=== PATIENT | male | born 1970 | race Caucasian/White ===

== ENCOUNTER 2019-05-29 15:46 | Inpatient (IN) | payer OTHER ==
--- NOTE | 2019-05-29 16:24 | RAD ---
Chest one view HISTORY: Chest pain. Hypotension. COMPARISON: 10/01/2006. FINDINGS: Cardiac silhouette is magnified by projection. Pulmonary vasculature upper limits of normal . Mediastinum is midline with postoperative changes. Calcified granulomata are consistent with healed granulomatous disease. No lobar consolidation or evidence of pneumothorax. IMPRESSION: No active cardiopulmonary abnormalities are demonstrated.
[2019-05-29 16:27] LABS: Bacteria/HPF None Seen HPF (None Seen); Squamous Epithelial None Seen HPF (0-3); WBC/HPF 0-3 HPF (0-3)
[2019-05-29 16:28] LABS: #Basophils 0.1 thou/uL (0.0-0.2); #Eosinphils 0.3 thou/uL (0.0-0.7); #Lymphocytes 2.3 thou/uL (1.20-3.40); #Monocytes 1.1 thou/uL (0.11-0.59); #Neutrophils 7.7 thou/uL (1.40-6.50); %Basophils 0.6 % (0.0-1.0); %Eosinophils 2.2 % (0.0-10.0); %Lymphocytes 20.3 % (21.0-51.0); %Monocytes 9.7 % (0.0-10.0); %Neutrophils 67.2 % (42.0-75.0); Hemoglobin 16.3 g/dL (14.0-18.0); Mean Corpuscular HGB CONC 34.7 g/dL (32.0-36.0); Mean Corpuscular Volume 92.1 fL (78.0-98.0); Mean Platelet Volume 6.2 fL (7.4-10.4); Platelet Count 275 thou/uL (130-400); Red Blood Cell (RBC) Count 5.09 mill/uL (4.70-6.10); White Blood Cell (WBC) Count 11.4 thou/uL (4.8-10.8)
[2019-05-29 16:31] LABS: Bilirubin Negative (Negative); Blood, Urine Trace (Negative); Clarity Clear (Clear); Glucose, Urine (Dipstick) Greater than 1000 mg/dL (Negative); Leukocyte Negative Leu/uL (Negative); Nitrite Negative (Negative); Protein, Urine (Dipstick) 10 mg/dL (Neg-Trace); Urobilinogen Normal mg/dL (Less than 2)
[2019-05-29 16:49] LABS: ALT (SGPT) 24 U/L (8-55); AST (SGOT) 16 U/L (5-34); Alkaline Phosphatase 94 U/L (40-150); Anion Gap 14 mmol/L (10-20); BUN (Urea Nitrogen) 15 mg/dL (8.9-20.6); Bilirubin, Total 0.3 mg/dL (0.2-1.2); CK (CPK) 102 U/L (30-200); Calc. Creatinine Clearance 0 mL/min (70-130); Carbon Dioxide 23 mmol/L (22-29); Chloride 102 mmol/L (98-107); Estimated GFR-MDRD Greater than 90; Globulin 2.6 g/dL (2.4-3.5); Glucose 330 mg/dL (70-105); Potassium 4.6 mmol/L (3.5-5.1); Protein, Total 6.6 g/dL (6.0-8.3); Sodium 134 mmol/L (136-145)
[2019-05-29 17:12] LABS: CKMB 1.7 ng/mL (0-6.6)
[2019-05-29] MEDS ORDERED: Morphine 4 MG/ML VIAL ONE (17:13)
[2019-05-29] MEDS ORDERED: Acetaminophen 325 MG TAB PO PRN (19:31)
[2019-05-29] MEDS ORDERED: Ondansetron ODT 4 MG TAB SL PRN (19:31)
[2019-05-29] MEDS ORDERED: Ondansetron PF 4 MG/2 ML Vial IVP PRN (19:31)
[2019-05-29] MEDS ORDERED: Aspirin 325 MG TAB PO SCH (19:45)
[2019-05-29] MEDS ORDERED: Dextrose 50% Abboject 50 ML SYRINGE SLOW IVP PRN (19:59)
[2019-05-29] MEDS ORDERED: HumaLOG 300 UNITS/3 ML VIAL SC PRN ×2 (19:59)
[2019-05-29] MEDS ORDERED: Dextrose 5% in Water 1,000 ML IV PRN (19:59)
[2019-05-29] MEDS: Carvedilol 25 MG TAB PO SCH (21:33)
[2019-05-29] MEDS: Famotidine 20 MG TAB PO SCH (21:34)
[2019-05-29] MEDS: Atorvastatin Calcium 40 MG TAB PO SCH (21:34)
[2019-05-29 23:16] LABS: Troponin I 0.189 ng/mL (< 0.028)
[2019-05-30 01:40] LABS: #Basophils 0.1 thou/uL (0.0-0.2); #Eosinphils 0.3 thou/uL (0.0-0.7); #Neutrophils 6.1 thou/uL (1.40-6.50); %Basophils 0.6 % (0.0-1.0); %Eosinophils 2.7 % (0.0-10.0); %Lymphocytes 28.6 % (21.0-51.0); %Monocytes 9.9 % (0.0-10.0); %Neutrophils 58.2 % (42.0-75.0); Hemoglobin 14.6 g/dL (14.0-18.0); Mean Corpuscular HGB CONC 34.7 g/dL (32.0-36.0); Mean Corpuscular Hemoglobin 32.3 pg (27.0-31.0); Mean Corpuscular Volume 92.9 fL (78.0-98.0); Mean Platelet Volume 5.9 fL (7.4-10.4); Platelet Count 237 thou/uL (130-400); Red Blood Cell (RBC) Count 4.53 mill/uL (4.70-6.10); White Blood Cell (WBC) Count 10.4 thou/uL (4.8-10.8)
[2019-05-30 02:02] LABS: Troponin I 0.243 ng/mL (< 0.028)
[2019-05-30 02:02] LABS: Hemoglobin A1c 8.4 % (4.0-6.0)
[2019-05-30 02:05] LABS: Anion Gap 11 mmol/L (10-20); BUN (Urea Nitrogen) 15 mg/dL (8.9-20.6); Calc. Creatinine Clearance 194 mL/min (70-130); Calcium 8.8 mg/dL (7.8-10.44); Carbon Dioxide 25 mmol/L (22-29); Cardiac Risk 6.5 (Less than 4.5); Chloride 105 mmol/L (98-107); Cholesterol 157 mg/dl (< 200 Desired); Estimated GFR-MDRD Greater than 90; Glucose 273 mg/dL (70-105); HDL Cholesterol 24 mg/dL (>60 Neg Risk); Sodium 137 mmol/L (136-145); Triglycerides 702 mg/dL (Less than 150)
--- NOTE | 2019-05-30 09:45 | PDOC.HOSPP ---
- Subjective Encounter Date: 05/30/19 Encounter Time: 09:15 Subjective: Patient examined, denies new complaints, denied chest pain - Objective Vital Signs & Weight: Vital Signs (12 hours) Temp Pulse Resp BP BP Pulse Ox 05/30/19 07:37 97.7 F 76 20 126/71 93 L 05/30/19 03:52 76 18 110/58 L 93 L 05/29/19 22:30 81 18 130/75 Weight Weight 120.973 kg Result Diagrams: 05/30/19 01:26 05/30/19 01:26 Additional Labs: Accuchecks 05/30/19 05/29/19 05/29/19 05:40 22:55 15:59 POC Glucose 203 H 257 H 302 H ROS - Review of Systems Cardiovascular: reports: chest pain Other: Denies chest pain currently - Medication Medications: Active Medications Generic Name Dose Route Start Last Admin Trade Name Freq PRN Reason Stop Dose Admin Atorvastatin Calcium 40 mg 05/29/19 21:00 05/29/19 21:34 Lipitor PO 40 mg HS CL Administration Carvedilol 12.5 mg 05/29/19 21:00 05/29/19 21:33 Coreg PO 12.5 mg BID CL Administration Famotidine 20 mg 05/29/19 21:00 05/29/19 21:34 Pepcid PO 20 mg BID CL Administration Insulin Human Lispro 0 units 05/29/19 19:59 05/29/19 22:59 Humalog SC 3 unit .BEDTIME SLIDING SC PRN Administration Bedtime Correctional Scale - Exam Eye: PERRL ENT: moist mucosa Neck: supple Heart: RRR Respiratory: CTAB Gastrointestinal: soft, non-tender Extremities: no edema Skin: normal turgor Neurological: CN's grossly intact Musculoskeletal: normal tone Psychiatric: normal affect, A&O x 3 Hosp A/P (1) Chest pain Code(s): R07.9 - CHEST PAIN, UNSPECIFIED Status: Acute (2) Unstable angina Status: Acute (3) CAD (coronary artery disease) Code(s): I25.10 - ATHSCL HEART DISEASE OF [place] CORONARY ARTERY W/O ANG PCTRS Status: Chronic (4) Diabetes mellitus Code(s): E11.9 - TYPE 2 DIABETES MELLITUS WITHOUT COMPLICATIONS Status: Chronic (5) Hypertriglyceridemia Code(s): E78.1 - PURE HYPERGLYCERIDEMIA Status: Acute - Plan Cardiology consult pending Troponins in the indeterminate range Will continue to monitor Recheck labs in AM
[2019-05-30] MEDS: Carvedilol 25 MG TAB PO SCH ×2 (09:51→21:50)
[2019-05-30] MEDS: Lisinopril 20 MG TAB PO SCH (09:51)
[2019-05-30] MEDS: Aspirin 81 mg Enteric Coated Tablet PO SCH (09:51)
[2019-05-30] MEDS: Famotidine 20 MG TAB PO SCH ×2 (09:51→21:50)
--- NOTE | 2019-05-30 10:57 | HP ---
CHIEF COMPLAINT: Chest pain. HISTORY OF PRESENT ILLNESS: The patient is a 48-year-old male with past medical history significant for premature coronary artery disease, requiring three vessel bypass surgery in 2005 at the age of 36, obesity, type 2 diabetes mellitus, hypertension, and tobacco abuse, who presented to the hospital after suffering an episode of chest pain earlier today. 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 He describes it as a pressure and a burning that radiated to the left arm. He stated that it felt very similar to his symptoms prior to his bypass surgery back in 2005. The patient reports the pain as severe, and went to sit back in the truck and turned on the air conditioning. Despite the air conditioning, the patient reported profuse diaphoresis associated with his chest discomfort. He called his family and drove to the nearest place where he could call an ambulance. EMS in [place] did picking tech the patient and bring him to the emergency department for further workup. He was given 325 mg of aspirin in the ambulance. Initial EKG obtained from EMS shows normal sinus rhythm, no dynamic ST or T-wave changes. His EKG on arrival to our facility did show approximately [address] depression in the lateral leads. The patient reported having another episode of chest discomfort in the ER, the patient was given morphine as well as nitroglycerin paste. His repeat EKG at that time showed some deepening of the ST depression. His troponin has been indeterminate. Upon my interview, the patient is chest pain free. Prior cardiac history does include a three vessel CABG at the age of 36. The patient's primary machine operator replanter is Dr. Crews. The patient reports that he did have a stress test in 2016 that he says was normal. He has had no followup since that time. The patient has been a one pack per day smoker, but is currently using Chantix to quit and said that he had his last cigarette several days ago. His serial troponin has been indeterminate thus far. REVIEW OF SYSTEMS: A 12-point review of systems performed and is negative except that stated above. PAST MEDICAL HISTORY: Hypertension, hyperlipidemia, type 2 diabetes mellitus, history of premature coronary artery disease, requiring three vessel CABG in 2005. PAST SURGICAL HISTORY: Three-vessel CABG as above. SOCIAL HISTORY: The patient is and lives just outside of [place]. He has a daughter who is a teenager. The patient has been smoking one pack per day of cigarettes for at least the past 8 years. He did quit briefly after his prior cardiac surgery. He is currently using Chantix and had his last cigarette several days ago. He drinks alcohol socially. No illicit drug use. FAMILY HISTORY: The patient is adopted, but he said that he does have some paperwork and knows that his genetic grandfather did have some coronary artery disease. ALLERGIES: NO KNOWN DRUG ALLERGIES. HOME MEDICATIONS: 1. Aspirin 81 mg daily. 2. Carvedilol 12.5 mg p.o. b.i.d. 3. Lisinopril 20 mg daily. 4. Atorvastatin 40 mg at bedtime. 5. Chantix, unknown dose. 6. Metformin, unknown dose. 7. Ronnie red Chaplin-3 oil, unknown dose. PHYSICAL EXAMINATION: VITAL SIGNS: Blood pressure is 129/64, pulse is 81, O2 saturation is 95% on room air, respirations 18, and temperature 98.5. GENERAL: The patient is a morbidly obese male, resting comfortably in bed in the ER, in no acute distress. HEENT: Head is atraumatic and normocephalic. Mucous membranes are moist. NECK: Trachea is midline. No JVD. CV: S1 and S2. Regular rate and rhythm. No appreciable murmurs, rubs, or gallops. LUNGS: Regular respiratory rate and pattern, overall clear. ABDOMEN: Positive bowel sounds, obese, nontender. EXTREMITIES: No edema. SKIN: Warm and dry. Multiple tattoos. NEUROLOGIC: Cranial nerves 2 through 12 are grossly intact. The patient is nonfocal. LABORATORY DATA: White blood cell count 11.4, hemoglobin 16.3, hematocrit 46.9, platelets 275. Sodium 134, potassium 4.6, chloride 102, anion gap 14, BUN 15, creatinine 0.88, GFR greater than 90, glucose 330. AST 16, ALT 24, alkaline phosphatase 94. Troponin 0.034 and 0.100 respectively. ASSESSMENT: 1. Worrisome angina, with some increasing ST depression in lateral leads on 2nd EKG per my review; indeterminate troponin. 2. History of premature coronary artery disease with three vessel CABG in 2006 at the age of 36. 3. Obesity. 4. History of tobacco abuse, currently in the process of quitting with Chantix. 5. Type 2 diabetes mellitus. 6. Hypertension. 7. Hyperlipidemia. PLAN: Given the patient's worrisome symptoms of angina and EKG findings, we will consult Cardiology for their recommendations. We will need to continue to trend troponins. Continue p.r.n. nitrates. Continue aspirin beta sangita, MIREILLE inhibitor, and statin. I will obtain an A1c in the morning as well as a fasting lipid profile. We will continue sliding scale insulin at this time. N.p.o. after midnight in anticipation of Cardiology consult. Given his EKG findings, symptoms, and known history, I will defer to Cardiology regarding stress test. Further recommendations based on hospital course. Job ID: [id number]
[2019-05-30] MEDS ORDERED: Nitroglycerin 0.4 MG TAB (25 Tab Bottle) SL PRN (17:10)
[2019-05-30] MEDS ORDERED: Morphine 4 MG/ML VIAL ONE (17:12)
[2019-05-30] MEDS: Communication Order-Pharmacy FS SCH (18:03)
[2019-05-30] MEDS: Atorvastatin Calcium 40 MG TAB PO SCH (21:50)
[2019-05-30] MEDS: Enoxaparin Sodium 120 MG/0.8 ML SYRINGE SC SCH (21:51)
[2019-05-30] MEDS: Morphine 4 MG/ML VIAL SLOW IVP PRN (21:54)
--- NOTE | 2019-05-30 23:13 | CON ---
DATE OF CONSULTATION: HISTORY: Dave Hercules is a 48-year-old white male with previous CABG at the age of 36. In 2006, he presented complaining of midsternal discomfort that would occur with and without exertion. He was placed on Protonix and had improvement in his pain for two months, but then this recurred. He also had dyspnea on exertion. Echo at that time revealed ejection fraction of 25% to 30% with apical akinesis. He underwent cardiac catheterization by Dr. Crews and was found to have total occlusion of the proximal LAD. There was 90% first obtuse marginal stenosis and total occlusion in the mid RCA. Ejection fraction was 25% to 30%. He underwent CABG x3 by Dr. Benson with DICKENS to LAD, saphenous vein graft to the first obtuse marginal, and saphenous vein graft to the right acute marginal. Postoperative course was unremarkable and by postoperative day 3, he was ready for discharge. He continues to follow up with Dr. Crews on a fairly routine basis until recently. He was last seen in the office in November 2006. He underwent treadmill testing and exercised for 10 minutes and 0 seconds. Maximum heart rate was 160, and he did not have any chest pain or ST-segment changes and it was felt that this was a normal exercise test. He has not been seen since that time. He states that in general, he has not been having much chest discomfort. Then, yesterday, he was unhitching his trailer and began to have severe substernal chest pressure associated with intense diaphoresis and shortness of breath. No nausea or vomiting. He got into his air-conditioned truck and continued to have profuse diaphoresis and chest pressure. He called 911. Paramedics arrived, gave him sublingual nitroglycerin, which gave him significant relief of his pain. He was brought to the hospital. He had another episode in the emergency room and was given intravenous morphine. Since that time, he has not had any further chest discomfort. Total duration of the episode of chest pain was 2 hours. PAST MEDICAL HISTORY: Hypertension, diabetes, hyperlipidemia with significant elevated triglycerides, obesity, and coronary artery disease. PAST SURGICAL HISTORY: CABG. MEDICATIONS: 1. Aspirin 81 daily. 2. Carvedilol 12.5 b.i.d. 3. Lisinopril 20 daily. 4. Atorvastatin 40 at bedtime. 5. Chantix and metformin, unknown dose daily. 6. MegaRed omega-3. ALLERGIES: NONE. SOCIAL HISTORY: He smokes 1 pack per day, but recently using Chantix, states he quit three weeks ago. He occasionally drinks alcohol. FAMILY HISTORY: The patient is adopted. REVIEW OF SYSTEMS: A 10-point review of systems is otherwise unremarkable. PHYSICAL EXAMINATION: VITAL SIGNS: Blood pressure 134/70 and pulse 82. HEENT: PERRL. NECK: Supple. CHEST: Clear. CARDIAC: S1 and S2 normal without any S3, S4, or murmurs. Carotid upstrokes normal without bruits. ABDOMEN: Normal bowel sounds without tenderness or organomegaly. EXTREMITIES: Revealed no clubbing, cyanosis, or edema. NEUROLOGIC: Grossly intact. SKIN: Warm and dry. LABORATORY DATA: EKG initially revealed slight ST-segment downsloping in V3 through V6. Repeat EKG 2 hours later revealed more significant downsloping ST segments , V3 through V6 consistent with lateral ischemia. CBC is unremarkable. Sodium 137, potassium 4.0, chloride 105, carbon dioxide 25, BUN 15, and creatinine 0.78. Troponin I 0.243. Cholesterol 157, triglycerides 702, HDL 24, LDL could not be determined. IMPRESSION: 1. [id number] myocardial infarction. 2. EKG changes consistent with lateral ischemia. 3. Status post coronary artery bypass grafting x3 in 2005. 4. Ischemic cardiomyopathy with ejection fraction of 25% to 30% prior to bypass surgery. I cannot find an echo in the office or in the hospital that reassessed his left ventricular function since bypass surgery, although I imagine that at the MI that has been done. 5. Hypertension. 6. Diabetes, poorly controlled. 7. Hyperlipidemia, poorly controlled. 8. Smoker until three weeks ago. PLAN: With non-STEMI and EKG changes consistent with lateral ischemia, Mr. Hercules needs to undergo cardiac catheterization. Risks of this were discussed including , myocardial infarction, dye reaction, vascular injury, CVA, transfusion, limb loss, renal loss, etc. Also risk of intervention with PTCA and stent placement were discussed including , myocardial infarction, emergent CABG, restenosis, stent thrombosis, vessel perforation, etc. He understands and agrees to proceed. He has no history of GI bleeding or stroke and does not have any upcoming surgeries and drug-eluting stent will be placed if required. Job ID: [id number] [facility]
[2019-05-31] MEDS: Morphine 2 MG/ML SYRINGE SLOW IVP PRN ×2 (08:09→20:38)
[2019-05-31] MEDS: Carvedilol 25 MG TAB PO SCH ×2 (08:10→20:27)
[2019-05-31] MEDS: Famotidine 20 MG TAB PO SCH ×2 (08:10→20:29)
[2019-05-31] MEDS: Enoxaparin Sodium 120 MG/0.8 ML SYRINGE SC SCH ×2 (08:10→20:29)
[2019-05-31] MEDS: Aspirin 81 mg Enteric Coated Tablet PO SCH (08:10)
[2019-05-31] MEDS: Lisinopril 20 MG TAB PO SCH (08:10)
[2019-05-31 08:38] LABS: #Basophils 0.1 thou/uL (0.0-0.2); #Eosinphils 0.3 thou/uL (0.0-0.7); #Lymphocytes 2.5 thou/uL (1.20-3.40); #Monocytes 1.2 thou/uL (0.11-0.59); #Neutrophils 8.7 thou/uL (1.40-6.50); %Basophils 0.6 % (0.0-1.0); %Eosinophils 2.2 % (0.0-10.0); %Lymphocytes 19.7 % (21.0-51.0); %Monocytes 9.5 % (0.0-10.0); %Neutrophils 68.1 % (42.0-75.0); Mean Corpuscular HGB CONC 34.7 g/dL (32.0-36.0); Mean Corpuscular Hemoglobin 31.9 pg (27.0-31.0); Mean Corpuscular Volume 91.9 fL (78.0-98.0); Mean Platelet Volume 5.9 fL (7.4-10.4); Platelet Count 264 thou/uL (130-400); RBC Distribution Width 12.2 % (11.5-14.5); Red Blood Cell (RBC) Count 5.32 mill/uL (4.70-6.10); White Blood Cell (WBC) Count 12.8 thou/uL (4.8-10.8)
[2019-05-31 08:56] LABS: Anion Gap 17 mmol/L (10-20); BUN (Urea Nitrogen) 11 mg/dL (8.9-20.6); Calc. Creatinine Clearance 199 mL/min (70-130); Carbon Dioxide 20 mmol/L (22-29); Chloride 101 mmol/L (98-107); Estimated GFR-MDRD Greater than 90; Glucose 162 mg/dL (70-105); Potassium 4.1 mmol/L (3.5-5.1); Sodium 134 mmol/L (136-145)
[2019-05-31] MEDS: Communication Order-Pharmacy FS SCH (12:29)
--- NOTE | 2019-05-31 13:05 | PDOC.HOSPP ---
- Subjective Encounter Date: 05/31/19 Encounter Time: 09:00 Subjective: Patient examined, reports intermittent chest pain, but nothing like he had when he first arrived in the ED. Denied new complaints. - Objective Vital Signs & Weight: Vital Signs (12 hours) Temp Pulse Resp BP Pulse Ox 05/31/19 11:38 97.5 F L 84 20 138/81 93 L 05/31/19 07:46 97.4 F L 84 16 134/66 94 L 05/31/19 05:36 97.5 F L 80 16 152/97 H 94 L Weight Weight 120.973 kg I&O: 05/30/19 05/31/19 06/01/19 06:59 06:59 06:59 Intake Total 640 Balance 640 Result Diagrams: 05/31/19 08:28 05/31/19 08:28 Additional Labs: Accuchecks 05/31/19 05/30/19 05/30/19 07:58 20:38 17:02 POC Glucose 147 H 203 H 174 H ROS - Review of Systems Cardiovascular: reports: chest pain - Medication Medications: Active Medications Generic Name Dose Route Start Last Admin Trade Name Freq PRN Reason Stop Dose Admin Aspirin 81 mg 05/30/19 09:00 05/31/19 08:10 Ecotrin PO 81 mg DAILY CL Administration Atorvastatin Calcium 40 mg 05/29/19 21:00 05/30/19 21:50 Lipitor PO 40 mg HS CL Administration Carvedilol 12.5 mg 05/29/19 21:00 05/31/19 08:10 Coreg PO 12.5 mg BID CL Administration Enoxaparin Sodium 120 mg 05/30/19 21:00 05/31/19 08:10 Lovenox SC 05/31/19 21:00 120 mg 0900,2100 CL Administration Famotidine 20 mg 05/29/19 21:00 05/31/19 08:10 Pepcid PO 20 mg BID CL Administration Insulin Human Lispro 0 units 05/29/19 19:59 05/29/19 22:59 Humalog SC 3 unit .BEDTIME SLIDING SC PRN Administration Bedtime Correctional Scale Lisinopril 20 mg 05/30/19 09:00 05/31/19 08:10 Zestril PO 20 mg DAILY CL Administration Miscellaneous Information 0 each 05/30/19 17:00 05/31/19 12:29 Communication Order-Pharmacy FS 05/31/19 23:00 Not Given 1700 CL Morphine Sulfate 2 mg 05/30/19 17:15 05/31/19 08:09 Morphine SLOW IVP 2 mg Q4H PRN Administration Moderate Pain (4-6) Morphine Sulfate 4 mg 05/30/19 17:09 05/30/19 21:54 Morphine SLOW IVP 4 mg Q4H PRN Administration Moderate to Severe Pain (6-10) - Exam Eye: PERRL Neck: supple Heart: RRR Respiratory: CTAB Gastrointestinal: soft, non-tender Extremities: no edema Skin: normal turgor Neurological: CN's grossly intact Musculoskeletal: normal strength Psychiatric: normal affect Hosp A/P (1) Chest pain Code(s): R07.9 - CHEST PAIN, UNSPECIFIED Status: Acute (2) Unstable angina Status: Acute (3) CAD (coronary artery disease) Code(s): I25.10 - ATHSCL HEART DISEASE OF [place] CORONARY ARTERY W/O ANG PCTRS Status: Chronic (4) Diabetes mellitus Code(s): E11.9 - TYPE 2 DIABETES MELLITUS WITHOUT COMPLICATIONS Status: Chronic (5) Hypertriglyceridemia Code(s): E78.1 - PURE HYPERGLYCERIDEMIA Status: Acute - Plan Cardiology recommends heart cath on Saturday, Started on Lovenox Troponins in the indeterminate range Will continue to monitor Recheck labs in AM
[2019-05-31] MEDS: Morphine 4 MG/ML VIAL SLOW IVP PRN (13:50)
[2019-05-31] MEDS: Atorvastatin Calcium 40 MG TAB PO SCH (20:28)
[2019-05-31] MEDS ORDERED: diphenhydrAMINE 25 MG CAP PO SCH (23:45)
[2019-06-01 05:35] LABS: #Basophils 0.1 thou/uL (0.0-0.2); #Eosinphils 0.3 thou/uL (0.0-0.7); #Lymphocytes 2.6 thou/uL (1.20-3.40); #Monocytes 1.1 thou/uL (0.11-0.59); #Neutrophils 6.6 thou/uL (1.40-6.50); %Basophils 0.9 % (0.0-1.0); %Monocytes 10.6 % (0.0-10.0); %Neutrophils 61.6 % (42.0-75.0); Mean Corpuscular HGB CONC 33.9 g/dL (32.0-36.0); Mean Corpuscular Hemoglobin 31.1 pg (27.0-31.0); Mean Platelet Volume 5.9 fL (7.4-10.4); Platelet Count 246 thou/uL (130-400); RBC Distribution Width 12.3 % (11.5-14.5); Red Blood Cell (RBC) Count 5.47 mill/uL (4.70-6.10); White Blood Cell (WBC) Count 10.8 thou/uL (4.8-10.8)
[2019-06-01 05:57] LABS: Anion Gap 13 mmol/L (10-20); BUN (Urea Nitrogen) 12 mg/dL (8.9-20.6); Calc. Creatinine Clearance 207 mL/min (70-130); Calcium 9.2 mg/dL (7.8-10.44); Carbon Dioxide 26 mmol/L (22-29); Chloride 101 mmol/L (98-107); Estimated GFR-MDRD Greater than 90; Glucose 137 mg/dL (70-105); Potassium 3.8 mmol/L (3.5-5.1); Sodium 136 mmol/L (136-145)
[2019-06-01] MEDS ORDERED: Sodium Chloride 0.9% 1,000 ML IV SCH (06:00)
[2019-06-01] MEDS: Carvedilol 25 MG TAB PO SCH ×2 (06:01→20:54)
[2019-06-01] MEDS: Famotidine 20 MG TAB PO SCH ×2 (06:01→20:55)
[2019-06-01] MEDS: Aspirin 81 mg Enteric Coated Tablet PO SCH (06:02)
[2019-06-01] MEDS: Lisinopril 20 MG TAB PO SCH (06:02)
[2019-06-01] MEDS ORDERED: Heparin 10,000 UNITS/1 ML VIAL ONE ×2 (06:34→08:07)
[2019-06-01] MEDS ORDERED: Lidocaine 1% (PF) 30 ML VIAL ONE (06:35)
[2019-06-01] MEDS ORDERED: Midazolam HCl 2 mg/2 ml Vial ONE ×2 (07:07→08:57)
[2019-06-01] MEDS ORDERED: Fentanyl 100 MCG/2 ML VIAL ONE (07:07)
[2019-06-01] MEDS ORDERED: Aggrastat 12.5 MG/250 ML 250 ML ONE (07:58)
[2019-06-01] MEDS ORDERED: Adenosine 6 MG/2 ML VIAL ONE (08:06)
[2019-06-01] MEDS ORDERED: TICAGRELOR 90 MG TABLET ONE (08:16)
[2019-06-01] MEDS ORDERED: Nitroglycerin 100MG/250ML BOT 250 ML ONE (08:44)
[2019-06-01] MEDS ORDERED: Iopamidol 370 76% 50 ML VIAL FS ONE (09:08)
[2019-06-01] MEDS ORDERED: Iopamidol 370 76% 100 ML VIAL ONE (09:08)
[2019-06-01] MEDS ORDERED: Morphine 4 MG/ML VIAL SLOW IVP PRN (09:50)
[2019-06-01] MEDS ORDERED: Nitroglycerin 0.4 MG TAB (25 Tab Bottle) SL PRN (09:50)
[2019-06-01] MEDS ORDERED: Morphine 2 MG/ML SYRINGE SLOW IVP PRN (10:00)
[2019-06-01] MEDS ORDERED: TICAGRELOR 90 MG TABLET PO SCH (10:00)
[2019-06-01] MEDS ORDERED: Morphine 2 MG/ML SYRINGE ONE (11:27)
[2019-06-01] MEDS: Sodium Chloride 0.9% 1,000 ML IV SCH ×2 (16:41→16:42)
[2019-06-01] MEDS: Aggrastat 12.5 MG/250 ML 250 ML IVPB SCH (16:43)
--- NOTE | 2019-06-01 16:48 | PDOC.HOSPP ---
- Subjective Encounter Date: 06/01/19 Encounter Time: 16:46 Subjective: Patient lying in bed, chest pain improved, denies palpitation, shortness of breath or abdominal pain. Heart cath showed 3 vessel disease. - Objective Vital Signs & Weight: Vital Signs (12 hours) BP 06/01/19 06:02 120/75 Weight Weight 266 lb 11.2 oz I&O: 05/31/19 06/01/19 06/02/19 06:59 06:59 06:59 Intake Total 640 850 250 Output Total 1075 Balance 640 850 -825 Result Diagrams: 06/01/19 04:51 06/01/19 04:51 Additional Labs: Accuchecks 06/01/19 05/31/19 06:01 20:40 POC Glucose 138 H 148 H Radiology Reviewed by me: Yes ROS - Review of Systems Constitutional: denies: fever, chills Eyes: denies: pain, conjunctivae inflammation, redness ENT: denies: nose pain, nose discharge, nose congestion Respiratory: denies: cough, dry, shortness of breath Cardiovascular: denies: chest pain, palpitations, light headedness Gastrointestinal: denies: nausea, vomitting, abdominal pain Musculoskeletal: denies: neck pain, arm pain, back pain Skin: denies: rash, lesions Neurological: denies: weakness, numbness All other systems reviewed; all pertinent +/- noted in HPI/Subj - Medication Medications: Active Medications Generic Name Dose Route Start Last Admin Trade Name Freq PRN Reason Stop Dose Admin Aspirin 81 mg 05/30/19 09:00 06/01/19 06:02 Ecotrin PO 81 mg DAILY CL Administration Atorvastatin Calcium 40 mg 05/29/19 21:00 05/31/19 20:28 Lipitor PO 40 mg HS CL Administration Carvedilol 12.5 mg 05/29/19 21:00 06/01/19 06:01 Coreg PO 12.5 mg BID CL Administration Famotidine 20 mg 05/29/19 21:00 06/01/19 06:01 Pepcid PO 20 mg BID LC Administration Tirofiban/Sodium Chloride 250 mls @ 0 mls/hr 06/01/19 10:00 06/01/19 16:43 Aggrastat 12.5 Mg/250 Ml IVPB 06/02/19 10:00 250 mls INF CL Administration Protocol As Directed Sodium Chloride 1,000 mls @ 125 mls/hr 06/01/19 09:52 06/01/19 16:42 Normal Saline 0.9% IV 06/01/19 18:00 Not Given .Q8H CL Insulin Human Lispro 0 units 05/29/19 19:59 05/29/19 22:59 Humalog SC 3 unit .BEDTIME SLIDING SC PRN Administration Bedtime Correctional Scale Lisinopril 20 mg 05/30/19 09:00 06/01/19 06:02 Zestril PO 20 mg DAILY CL Administration Morphine Sulfate 2 mg 05/30/19 17:15 05/31/19 20:38 Morphine SLOW IVP 2 mg Q4H PRN Administration Moderate Pain (4-6) Morphine Sulfate 4 mg 05/30/19 17:09 05/31/19 13:50 Morphine SLOW IVP 4 mg Q4H PRN Administration Moderate to Severe Pain (6-10) - Exam NAD, awake alert Eye: PERRL, anicteric sclera ENT: normocephalic atraumatic, moist mucosa Heart: RRR, no murmur Respiratory: CTAB Gastrointestinal: normal bowel sounds Skin: normal turgor Neurological: CN's grossly intact, normal sensation to touch Musculoskeletal: normal tone Psychiatric: normal affect, A&O x 3 Hosp A/P (1) Chest pain Code(s): R07.9 - CHEST PAIN, UNSPECIFIED Status: Acute (2) Hypertriglyceridemia Code(s): E78.1 - PURE HYPERGLYCERIDEMIA Status: Acute (3) Unstable angina Status: Acute (4) CAD (coronary artery disease) Code(s): I25.10 - ATHSCL HEART DISEASE OF [place] CORONARY ARTERY W/O ANG PCTRS Status: Chronic (5) Diabetes mellitus Code(s): E11.9 - TYPE 2 DIABETES MELLITUS WITHOUT COMPLICATIONS Status: Chronic - Plan old records reviewed/req Heart cath showing 3 vessel CAD s/p stents Continue medical management and supportive care Cardiology following and appreciate recommendations Patient transitioned to inpatient due to heart cath findings.
[2019-06-01 20:01] LABS: Hemoglobin 16.9 g/dL (14.0-18.0); Platelet Count 273 thou/uL (130-400)
[2019-06-01] MEDS: Atorvastatin Calcium 40 MG TAB PO SCH (20:54)
[2019-06-02] MEDS: Aggrastat 12.5 MG/250 ML 250 ML IVPB SCH (05:45)
[2019-06-02 05:48] LABS: #Basophils 0.1 thou/uL (0.0-0.2); #Eosinphils 0.4 thou/uL (0.0-0.7); #Monocytes 1.1 thou/uL (0.11-0.59); #Neutrophils 5.6 thou/uL (1.40-6.50); %Basophils 0.6 % (0.0-1.0); %Lymphocytes 22.3 % (21.0-51.0); %Neutrophils 61.2 % (42.0-75.0); Hemoglobin 16.4 g/dL (14.0-18.0); Mean Corpuscular HGB CONC 32.4 g/dL (32.0-36.0); Mean Corpuscular Hemoglobin 29.8 pg (27.0-31.0); Mean Corpuscular Volume 92.1 fL (78.0-98.0); Mean Platelet Volume 5.9 fL (7.4-10.4); Platelet Count 281 thou/uL (130-400); RBC Distribution Width 12.3 % (11.5-14.5); Red Blood Cell (RBC) Count 5.52 mill/uL (4.70-6.10); White Blood Cell (WBC) Count 9.2 thou/uL (4.8-10.8)
[2019-06-02 05:56] LABS: ALT (SGPT) 29 U/L (8-55); AST (SGOT) 21 U/L (5-34); Albumin 3.7 g/dL (3.5-5.0); Alkaline Phosphatase 79 U/L (40-150); Anion Gap 13 mmol/L (10-20); BUN (Urea Nitrogen) 11 mg/dL (8.9-20.6); Bilirubin, Total 0.9 mg/dL (0.2-1.2); Calc. Creatinine Clearance 201 mL/min (70-130); Carbon Dioxide 22 mmol/L (22-29); Chloride 103 mmol/L (98-107); Estimated GFR-MDRD Greater than 90; Globulin 2.5 g/dL (2.4-3.5); Glucose 125 mg/dL (70-105); Protein, Total 6.2 g/dL (6.0-8.3); Sodium 134 mmol/L (136-145)
[2019-06-02] MEDS ORDERED: Aspirin Chewable 81 MG TAB PO SCH (09:00)
[2019-06-02] MEDS: Carvedilol 25 MG TAB PO SCH ×2 (09:10→21:58)
[2019-06-02] MEDS: Lisinopril 20 MG TAB PO SCH (09:10)
[2019-06-02] MEDS: Famotidine 20 MG TAB PO SCH ×2 (09:12→21:57)
[2019-06-02] MEDS: TICAGRELOR 90 MG TABLET PO SCH ×2 (09:12→21:58)
--- NOTE | 2019-06-02 13:36 | CCL ---
SURGEON: Sherif Coombs M.D. INDICATIONS: Non-STEMI. PROCEDURE: 1. Left heart catheterization. 2. Selective coronary arteriography. 3. Left ventriculography. 4. Bypass graft angiography. 5. DICKENS injection. 6. Drug eluding stent placement in the obtuse marginal graft, distal circumflex and proximal cir cumflex. The patient is brought to the Cardiac civil laboratory technician and the right groin was prepped and draped in the usua l fashion. 1% lidocaine was infiltrated. 6 [place] sheath was placed into the right femoral artery. He elisa 3000 units were given. 6 [place] angulated pigtail was inserted. During the procedure, the patie nt received versed 1 mg and Fentanyl 25 mg on multiple occasions for moderate conscious sedation of 2 hours and 15 minutes. Pressures were obtained with the pigtail. Left ventriculogram was performed using 30 mL of contrast a t 12 mL/s in an MACHADO 30 degree projection. Pressures were obtained and the pigtail was removed. 6 [place] Judkin's left 4 was then inserted for left coronary arteriography. 6 [place] Judkin's right 4 was inserted for right coronary arteriography but did go into the left subclavian vein and so the LI MA was injected. the right 4 was then used to opacify the [place] right coronary artery and the obtuse marginal graft. A multipurpose was needed to opacify the right acute marginal graft. Films were reviewed and discussed with Dr. Adrien Flores who felt that the distal circumflex could no t be bypassed and ultimately the decision was made to proceed with intervention of the obtuse margina l graft. A 6 [place] left 1 guide catheter was used. The patient was given multiple doses of continuo us heparin to maintain an ACT of 335-338. Aggrastat bolus and drip were given. The patient was given Brilinta 180 mg. The Floppy choice wire would not cross the distal 99% lesion in the obtuse marginal graft. This was r emoved and Mailman wire was inserted. Adenosine 20 mcg was given into the graft. Emerge 2.0 x 12 mm b alloon was used to predilate the area. This was then removed and Emerge 3.5 x 12 mm was then inserted for further predilatation. Liberty catheter was then inserted to try to remove some the thrombotic ma terial; however, none was removed. Synergy 3.5 x 12 mm stent was then positioned and deployed. The pr oximal portion was postdilated with Emerge NC 4.5 x 8 mm balloon. Final result was excellent. The lef t 1 guide catheter was removed. 6 [place] left 4 guide catheter was inserted. Floppy choice wire was advanced into the distal circumfl ex. Synergy 2.25 x 15 mm balloon was inserted; however, would not cross the distal lesion. Emerge 2. 0 x 12 mm balloon was inserted but also would not totally cross the area and this was removed. Emerge 1.5 x 12 mm was then inserted and the area was predilated. The 2.0 mm balloon was again reinserted a nd the area was predilated. The Synergy 2.25 stent was positioned and deployed. In the proximal circ, Synergy 3.5 x 24 mm stent was positioned and deployed. The proximal portion was postdilated with Jen rge NC 4.0 x 12 mm balloon. The sheaths were sutured in place. The patient was transferred to the CCU on Aggrastat drip. RESULTS: PRESSURES: Aorta: 109/70, mean of 88. Left ventricle: 143/21. LEFT VENTRICULOGRAM: There was severe mid to distal inferior and moderate mid to distal anterior hypokinesis with ejection fraction of 40-45%. CORONARY ARTERIOGRAPHY: 1. Left main was normal. 2. The LAD was totally occluded proximally. 3. The circumflex had an 80% proximal stenosis and a 70% distal stenosis. The first obtuse shannen nal was totally occluded. 4. The right coronary artery was totally occluded proximally. BYPASS GRAFT: 1. The DICKENS to the LAD was patent. 2. The obtuse marginal 1 graft had thrombus in the graft with a 99% distal stenosis. 3. The right acute marginal graft was patent with a 99% lesion distal to the graft. INTERVENTION RESULTS: 1. The obtuse marginal graft was reduced from 99 to 0%. 2. The distal circumflex was reduced from 70% to 0%. 3. The proximal circumflex was reduced from 80% to 0%. IMPRESSION: 1. Three vessel coronary artery disease. 2. Three grafts patent but severe disease in the obtuse marginal graft. 3. Mild left ventricular dysfunction. 4. Successful drug eluding stent placement in the obtuse marginal graft, distal circumflex and p roximal circumflex.
--- NOTE | 2019-06-02 15:10 | PDOC.HOSPP ---
- Subjective Encounter Date: 06/02/19 Encounter Time: 10:15 Subjective: pt up in bed no complains - Objective Vital Signs & Weight: Vital Signs (12 hours) Temp Pulse Pulse Pulse Resp BP BP 06/02/19 12:55 85 86 130/90 06/02/19 11:23 98.8 F 71 18 06/02/19 09:10 120/75 06/02/19 08:00 98.4 F 78 18 06/02/19 03:34 97.3 F L 74 17 BP BP BP Pulse Ox 06/02/19 12:55 138/90 06/02/19 11:23 142/70 H 98 06/02/19 09:10 06/02/19 08:00 138/85 97 06/02/19 03:34 111/60 93 L Weight Weight 254 lb 14.4 oz I&O: 06/01/19 06/02/19 06/03/19 06:59 06:59 06:59 Intake Total 850 1910 Output Total 2125 Balance 850 -215 Result Diagrams: 06/02/19 04:47 06/02/19 04:47 Additional Labs: Accuchecks 06/01/19 06/01/19 20:34 17:18 POC Glucose 168 H 111 H ROS - Review of Systems Respiratory: denies: cough, dry, shortness of breath, hemoptysis, SOB with excertion, pleuritic pain, sputum, wheezing, other Cardiovascular: denies: chest pain, palpitations, orthopnea, paroxysmal noc. dyspnea, edema, light headedness, other Gastrointestinal: denies: nausea, vomitting, abdominal pain, diarrhea, constipation, melena, hematochezia, other - Medication Medications: Active Medications Generic Name Dose Route Start Last Admin Trade Name Freq PRN Reason Stop Dose Admin Aspirin 81 mg 05/30/19 09:00 06/01/19 06:02 Ecotrin PO 81 mg DAILY CL Administration Atorvastatin Calcium 40 mg 05/29/19 21:00 06/01/19 20:54 Lipitor PO 40 mg HS CL Administration Carvedilol 12.5 mg 05/29/19 21:00 06/02/19 09:10 Coreg PO 12.5 mg BID CL Administration Famotidine 20 mg 05/29/19 21:00 06/02/19 09:12 Pepcid PO 20 mg BID CL Administration Insulin Human Lispro 0 units 05/29/19 19:59 05/29/19 22:59 Humalog SC 3 unit .BEDTIME SLIDING SC PRN Administration Bedtime Correctional Scale Lisinopril 20 mg 05/30/19 09:00 06/02/19 09:10 Zestril PO 20 mg DAILY CL Administration Morphine Sulfate 2 mg 05/30/19 17:15 05/31/19 20:38 Morphine SLOW IVP 2 mg Q4H PRN Administration Moderate Pain (4-6) Morphine Sulfate 4 mg 05/30/19 17:09 05/31/19 13:50 Morphine SLOW IVP 4 mg Q4H PRN Administration Moderate to Severe Pain (6-10) Sodium Chloride 10 ml 06/01/19 21:00 06/02/19 09:12 Flush - Normal Saline IVF 10 ml Q12HR CL Administration Ticagrelor 90 mg 06/02/19 09:00 06/02/19 09:12 Brilinta PO 90 mg BID CL Administration - Exam Neck: negative: supple, symmetric, no JVD, no thyromegaly, no lymphadenopathy, no carotid bruit, JVD Heart: negative: RRR, no murmur, no gallops, no rubs, normal peripheral pulses, irregular, diminshed peripheral pulses, murmur present, II/IV, III/IV Respiratory: negative: CTAB, no wheezes, no rales, no ronchi, normal chest expansion, no tachypnea, normal percussion, rales, rhonchi, tachypneic, wheezes Hosp A/P (1) Chest pain Code(s): R07.9 - CHEST PAIN, UNSPECIFIED Status: Acute (2) Hypertriglyceridemia Code(s): E78.1 - PURE HYPERGLYCERIDEMIA Status: Acute (3) Unstable angina Status: Acute (4) CAD (coronary artery disease) Code(s): I25.10 - ATHSCL HEART DISEASE OF [place] CORONARY ARTERY W/O ANG PCTRS Status: Chronic (5) Diabetes mellitus Code(s): E11.9 - TYPE 2 DIABETES MELLITUS WITHOUT COMPLICATIONS Status: Chronic - Plan s/p 3 stents placement, will check with cardio if ok to discharge. will continue statin. pt has no pain. vitals stable.
[2019-06-02] MEDS: Atorvastatin Calcium 40 MG TAB PO SCH (21:58)
--- NOTE | 2019-06-02 22:43 | EKG ---
Test Reason : Blood Pressure : / mmHG Vent. Rate : 080 BPM Atrial Rate : 080 BPM P-R Int : 212 ms QRS Dur : 080 ms QT Int : 364 ms P-R-T Axes : 033 043 096 degrees QTc Int : 419 ms Sinus rhythm with 1st degree A-V block Nonspecific ST and T wave abnormality Abnormal ECG When compared with ECG of 30-SEP-2006 14:44, NV interval has increased Vent. rate has decreased BY [address] now depressed in Anterior leads Confirmed by Jamir MEDELLIN ([id number]) on 06/02/2019 10:43:26 PM Referred By: HINA Confirmed By:Jamir MEDELLIN
[2019-06-03 05:27] LABS: #Eosinphils 0.3 thou/uL (0.0-0.7); #Lymphocytes 2.2 thou/uL (1.20-3.40); #Monocytes 1.3 thou/uL (0.11-0.59); #Neutrophils 5.9 thou/uL (1.40-6.50); %Basophils 0.5 % (0.0-1.0); %Eosinophils 3.5 % (0.0-10.0); %Lymphocytes 22.7 % (21.0-51.0); %Monocytes 13.2 % (0.0-10.0); %Neutrophils 60.1 % (42.0-75.0); Hemoglobin 16.8 g/dL (14.0-18.0); Mean Corpuscular HGB CONC 33.6 g/dL (32.0-36.0); Mean Corpuscular Hemoglobin 31.2 pg (27.0-31.0); Mean Corpuscular Volume 92.8 fL (78.0-98.0); Platelet Count 258 thou/uL (130-400); RBC Distribution Width 12.3 % (11.5-14.5); Red Blood Cell (RBC) Count 5.39 mill/uL (4.70-6.10); White Blood Cell (WBC) Count 9.8 thou/uL (4.8-10.8)
[2019-06-03 05:46] LABS: Anion Gap 15 mmol/L (10-20); BUN (Urea Nitrogen) 12 mg/dL (8.9-20.6); Calc. Creatinine Clearance 198 mL/min (70-130); Calcium 9.3 mg/dL (7.8-10.44); Carbon Dioxide 21 mmol/L (22-29); Chloride 105 mmol/L (98-107); Estimated GFR-MDRD Greater than 90; Glucose 129 mg/dL (70-105); Sodium 137 mmol/L (136-145)
[2019-06-03] MEDS: Carvedilol 25 MG TAB PO SCH (08:19)
[2019-06-03] MEDS: Aspirin 81 mg Enteric Coated Tablet PO SCH (08:19)
[2019-06-03] MEDS: Famotidine 20 MG TAB PO SCH (08:20)
[2019-06-03] MEDS: TICAGRELOR 90 MG TABLET PO SCH (08:20)
[2019-06-03] MEDS: Lisinopril 20 MG TAB PO SCH (08:20)
[2019-06-03 12:54] VITALS: BP 122/84; TEMP 97.2
--- NOTE | 2019-06-03 21:24 | DIS ---
DATE OF ADMISSION: 05/29/2019 DATE OF DISCHARGE: 06/03/2019 DISCHARGE DIAGNOSES: As of the followin. Chest pain. 2. Hypertriglyceridemia. 3. Unstable angina. 4. Coronary artery disease. HOSPITAL COURSE: The patient is a 48-year-old male, who initially presented to the hospital with complaints of chest pain. He was seen by Cardiology, underwent a cardiac cath and underwent three stents, PCI. He had a drug-eluting stent x3 initially to the distal bypass graft of the first obtuse marginal coronary artery. He had another one to the distal circumflex coronary artery and the third one to the proximal circumflex coronary artery. He does have a history of bypass in the past. The patient continued to improve throughout the hospital stay. He was followed also by Cardiology. He was then discharged home. MEDICATIONS: As of the followin. Vascepa 2 g b.i.d. 2. Brilinta 90 mg b.i.d. 3. Aspirin 81 mg daily. 4. Atorvastatin 40 mg at bedtime. 5. Carvedilol 12.5 b.i.d. 6. Zestril 20 mg daily. 7. Metformin 1000 mg b.i.d. 8. Chantix one p.o. b.i.d. PHYSICAL EXAMINATION: VITAL SIGNS: Temperature 97.6, 88, 17, 94% on room air, 122/84. GENERAL: He is awake, alert, and oriented x3. Does not appear in distress. CV: S1, S2 present. No murmurs, rubs, or gallops. ABDOMEN: Soft and nontender. Bowel sounds are present x2. Again, he will be discharged home. Followup with his Primary and Cardiology. Job ID: [id number]
--- NOTE | 2019-06-06 11:26 | EKG ---
Test Reason : Blood Pressure : / mmHG Vent. Rate : 091 BPM Atrial Rate : 091 BPM P-R Int : 208 ms QRS Dur : 076 ms QT Int : 354 ms P-R-T Axes : 038 056 100 degrees QTc Int : 435 ms Normal sinus rhythm Abnormal ECG #1 Confirmed by SUDEEP HUNTLEY D.O. ([id number]), primer expeditor and drier SAVANNAH DRAKE ([id number]) on 06/06/2019 11:26:50 AM Referred By: Confirmed By:SUDEEP HUNTLEY D.O.
--- NOTE | 2019-06-06 11:28 | EKG ---
Test Reason : Blood Pressure : / mmHG Vent. Rate : 085 BPM Atrial Rate : 085 BPM P-R Int : 200 ms QRS Dur : 082 ms QT Int : 362 ms P-R-T Axes : 018 041 113 degrees QTc Int : 430 ms Normal sinus rhythm Abnormal ECG #2 ST elevation aVR, V1 ST depression V4 - V6 Confirmed by SUDEEP HUNTLEY D.O. ([id number]), editor producer SAVANNAH DRAKE ([id number]) on 06/06/2019 11:28:03 AM Referred By: Confirmed By:SUDEEP HUNTLEY D.O.
== END 2019-06-03 12:43 | disposition home or self-care (01) | DRG 247 ==
LOC: ERS 15:46 → 2SW 19:16 → OBSVTOIN 19:16 → 2NO 06-01 16:20
PROVIDERS: ADMIT Internal Medicine; ATTEND Internal Medicine
PROC: 027236Z Dilation of Coronary Artery, Three Arteries with Three Drug-eluting Intraluminal Devices, Percutaneous Approach (ICD-10-PCS; principal; 2019-05-29)
PROC: 4A023N7 Measurement of Cardiac Sampling and Pressure, Left Heart, Percutaneous Approach (ICD-10-PCS; 2019-05-29)
PROC: B2111ZZ Fluoroscopy of Multiple Coronary Arteries using Low Osmolar Contrast (ICD-10-PCS; 2019-05-29)
PROC: B2181ZZ Fluoroscopy of Left Internal Mammary Bypass Graft using Low Osmolar Contrast (ICD-10-PCS; 2019-05-29)
PROC: B2131ZZ Fluoroscopy of Multiple Coronary Artery Bypass Grafts using Low Osmolar Contrast (ICD-10-PCS; 2019-05-29)
PROC: B2151ZZ Fluoroscopy of Left Heart using Low Osmolar Contrast (ICD-10-PCS; 2019-05-29)
DX: I25.710 Atherosclerosis of autologous vein coronary artery bypass graft(s) with unstable angina pectoris (principal); E78.1 Pure hyperglyceridemia; E11.9 Type 2 diabetes mellitus without complications; I10 Essential (primary) hypertension; E66.9 Obesity, unspecified; Z79.82 Long term (current) use of aspirin; Z79.84 Long term (current) use of oral hypoglycemic drugs; Z79.899 Other long term (current) drug therapy; Z95.1 Presence of aortocoronary bypass graft; Z87.891 Personal history of nicotine dependence; Z68.37 Body mass index [BMI] 37.0-37.9, adult
CPT/HCPCS: 36415; 36416; 71045; 80048; 80053; 80061; 81003; 81015; 82550; 82553; 83036; 84484; 85025; 85347; 92929; 92937; 92973; 93005; 93010; 93459; 93798; 96361; 96374; 99152; 99153; C1725; C1757; C1769; C1874; C1887; C9601; C9604; J0153; J1644; J1650; J2001; J2250; J2270; J3010; J3246; Q0163; Q9967

== ENCOUNTER 2020-11-29 17:58 | Inpatient (IN) | payer OTHER ==
[2020-11-29 18:51] LABS: #Basophils 0.1 thou/uL (0.0-0.2); #Eosinphils 0.4 thou/uL (0.0-0.7); #Monocytes 1.2 thou/uL (0.11-0.59); #Neutrophils 7.4 thou/uL (1.40-6.50); %Basophils 0.4 % (0.0-1.0); %Lymphocytes 25.2 % (21.0-51.0); %Monocytes 10.1 % (0.0-10.0); %Neutrophils 61.2 % (42.0-75.0); Hemoglobin 17.2 g/dL (14.0-18.0); Mean Corpuscular HGB CONC 33.9 g/dL (32.0-36.0); Mean Corpuscular Hemoglobin 31.9 pg (27.0-31.0); Mean Corpuscular Volume 94.1 fL (78.0-98.0); Mean Platelet Volume 5.9 fL (7.4-10.4); Platelet Count 258 thou/uL (130-400); RBC Distribution Width 12.3 % (11.5-14.5); White Blood Cell (WBC) Count 12.1 thou/uL (4.8-10.8)
[2020-11-29 19:13] LABS: Anion Gap 16 mmol/L (10-20); BUN (Urea Nitrogen) 16 mg/dL (8.4-25.7); Calc. Creatinine Clearance 0 mL/min (70-130); Carbon Dioxide 25 mmol/L (22-29); Chloride 100 mmol/L (98-107); Potassium 4.1 mmol/L (3.5-5.1); Sodium 137 mmol/L (136-145)
[2020-11-29 19:14] LABS: ALT (SGPT) 20 U/L (8-55); AST (SGOT) 26 U/L (5-34); Alkaline Phosphatase 95 U/L (40-110); Bilirubin, Total 0.6 mg/dL (0.2-1.2); Calcium 8.5 mg/dL (7.8-10.44); Globulin 2.5 g/dL (2.4-3.5); Glucose 233 mg/dL (70-105); Protein, Total 6.5 g/dL (6.0-8.3)
--- NOTE | 2020-11-29 19:16 | RAD ---
TWO VIEW CHEST, PA AND LATERAL: History: Chest pain Comparison: 09-27-06 FINDINGS: Lung martins appear clear. Heart is upper normal size with post op sternotomy change. Vasculature norm al. IMPRESSION: No acute lung process. POS: AGW
[2020-11-29] MEDS ORDERED: Enoxaparin Sodium 60 MG/0.6 ML SYRINGE ONE (20:02)
[2020-11-29] MEDS ORDERED: Nitroglycerin 2% Ointment 1 INCH/1 GM Packet ONE (20:02)
[2020-11-29] MEDS ORDERED: Fentanyl 100 MCG/2 ML VIAL ONE (21:43)
[2020-11-29 22:36] LABS: Troponin I 2.627 ng/mL (< 0.028)
--- NOTE | 2020-11-29 23:26 | PDOC.HHP ---
Hospitalist HPI History of Present Illness: ADMISSION DATE: 11/29/2020 TIME OF ASSESSMENT: 2200 PRIMARY CARE PHYSICIAN: [facility] CHIEF COMPLAINT: Chest pain HPI: This is a 50-year-old gentleman who presents emergency department with persistent chest pain that started at 7 AM this morning. He states it is substernal and describes it as a severe aching sensation which he rates a 10 out of 10 in severity. He states the pain is nonradiating. Reports having some provement in pain after he ate lunch and then an hour later the pain recurred and has been constant since. He denies any associated diaphoresis, nausea or vomiting. Has not had any cough, shortness of breath or hemoptysis. He has a known history of heart disease and has had MIs in the past. The most recent hospitalization for an NSTEMI was in May 2019 during which time he underwent a heart cath with cardiac stents x3. He also has a history of bypass in the past. 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 He also admits to being noncompliant with his medications in recent weeks. In retrospect he recalls having discomfort in his back that was not reproducible on palpation but persistent and intermittent for the last 2 weeks. He thought it was due to a muscle strain from recent heavy lifting. Denies any trauma. He continues to feel that discomfort and it seems to be located below the left shoulder blade. ROS: Denies having any recent fevers, chills or sweats. No headaches or dizziness. No nausea or vomiting. Denies any abdominal pain. No bowel changes or urinary symptoms. No lower leg swelling or edema. All other review of systems are negative. ED COURSE: In the ER he had an EKG done which showed a first-degree AV block with Q waves in V1, V2 and V3. Repeat EKG showed a heart rate of 88 with unifocal PVCs and ST elevation in V1. Q waves in V1, V2 and V3. Chest x-ray showed no acute lung process. Labs demonstrated a white cell count of 12.1, hemoglobin 17.2, hematocrit 50.8, platelets of 58, neutrophils 61.2%. Sodium 137, potassium 4.1, BUN 16, creatinine 1.10, GFR 70, glucose 233, LFTs normal. CK-MB 31, troponin I 0.311, second troponin II 0.627. He received 324 mg of aspirin and 1 inch of Nitro-Bid applied. The patient was treated with full dose Lovenox at 1 mg/kg. For additional pain control he was given 50 mcg of fentanyl IV. Allergies/Adverse Reactions: Allergy/AdvReac Type Severity Reaction Status Date / Time No Known Drug Allergies Allergy Verified 01/02/20 15:37 Home Medications: Medication Instructions Recorded Confirmed Type Aspirin [Aspir-Low] 81 mg PO DAILY 05/29/19 05/29/19 History Atorvastatin Calcium [Lipitor] 40 mg PO HS 05/29/19 05/29/19 History Carvedilol [Coreg] 12.5 mg PO BID 05/29/19 05/29/19 History Lisinopril [Zestril] 20 mg PO DAILY 05/29/19 05/29/19 History metFORMIN HCl 1,000 mg PO BID-WM 05/29/19 05/30/19 History Icosapent Ethyl [Vascepa] 2 gm PO BID-WM #60 capsule 06/03/19 Rx Ticagrelor [Brilinta] 90 mg PO BID #60 tab 06/03/19 Rx Varenicline Tartrate [Chantix] 1 each PO BID 06/03/19 06/03/19 History Past History: PAST MEDICAL HISTORY: 1. Hypertension 2. Premature CAD 3. Hypertriglyceridemia 4. Unstable angina 5. Obesity 6. Type 2 diabetes mellitus PAST SURGICAL HISTORY: 1. CABG x3 in 2005 2. PCI with drug-eluting stents x3 in May 2019 SOCIAL HISTORY: Denies tobacco use or drug use. States he drinks socially once a month. Previously smoked cigarettes. FAMILY HISTORY: The patient is adopted and states he is aware that his biological grandfather did have coronary artery disease. Hospitalist Exam General Appearance: NAD, awake alert General - other findings: VS: Temp 98.9, HR 93, BP 130/72, RR 18, O2 sat 97% on room air. Eye: PERRL, anicteric sclera ENT: normocephalic atraumatic, no oropharyngeal lesions Neck: supple, no lymphadenopathy Heart: RRR, normal peripheral pulses Respiratory: CTAB, no wheezes, no rales, no ronchi, normal chest expansion Gastrointestinal: soft (obese), non-tender, non-distended, normal bowel sounds Extremities: no edema Skin: normal turgor, no lesions, no rashes Neurological: cranial nerve grossly intact, normal sensation to touch, no weakness Musculoskeletal: normal tone, normal strength, no muscle wasting Psychiatric: normal affect, normal behavior, A&O x 3 Hospitalist Results Result Diagrams: 11/29/20 18:32 11/29/20 18:32 Lab results: Laboratory Last Values WBC 12.1 thou/uL (4.8-10.8) H 11/29/20 18:32 RBC 5.40 mill/uL (4.70-6.10) 11/29/20 18:32 Hgb 17.2 g/dL (14.0-18.0) 11/29/20 18:32 Hct 50.8 % (42.0-52.0) 11/29/20 18:32 MCV 94.1 fL (78.0-98.0) 11/29/20 18: MCH 31.9 pg (27.0-31.0) H 11/29/20 18: MCHC 33.9 g/dL (32.0-36.0) 11/29/20 18:32 RDW 12.3 % (11.5-14.5) 11/29/20 18:32 Plt Count 258 thou/uL (130-400) 11/29/20 18:32 MPV 5.9 fL (7.4-10.4) L 11/29/20 18:32 Neutrophils % 61.2 % (42.0-75.0) 11/29/20 18: Lymphocytes % 25.2 % (21.0-51.0) 11/29/20 18: Monocytes % 10.1 % (0.0-10.0) H 11/29/20 18: Eosinophils % 3.0 % (0.0-10.0) 11/29/20 18: Basophils % 0.4 % (0.0-1.0) 11/29/20 18:32 Neutrophils # 7.4 thou/uL (1.40-6.50) H 11/29/20 18: Lymphocytes # 3.0 thou/uL (1.20-3.40) 11/29/20 18: Monocytes # 1.2 thou/uL (0.11-0.59) H 11/29/20 18:32 Eosinophils # 0.4 thou/uL (0.0-0.7) 11/29/20 18:32 Basophils # 0.1 thou/uL (0.0-0.2) 11/29/20 18:32 Sodium 137 mmol/L (136-145) 11/29/20 18:32 Potassium 4.1 mmol/L (3.5-5.1) 11/29/20 18:32 Chloride 100 mmol/L (98-107) 11/29/20 18:32 Carbon Dioxide 25 mmol/L (22-29) 11/29/20 18:32 Anion Gap 16 mmol/L (10-20) 11/29/20 18:32 BUN 16 mg/dL (8.4-25.7) 11/29/20 18:32 Creatinine 1.10 mg/dL (0.7-1.3) 11/29/20 18:32 Estimated GFR (MDRD) 70 11/29/20 18:32 Glucose 233 mg/dL (70-105) H 11/29/20 18:32 Calcium 8.5 mg/dL (7.8-10.44) 11/29/20 18:32 Total Bilirubin 0.6 mg/dL (0.2-1.2) 11/29/20 18:32 AST 26 U/L (5-34) 11/29/20 18:32 ALT 20 U/L (8-55) 11/29/20 18:32 Alkaline Phosphatase 95 U/L (40-110) 11/29/20 18:32 CK-MB (CK-2) 31.0 ng/mL (0-6.6) H* 11/29/20 18:32 Troponin I 2.627 ng/mL (< 0.028) H* 11/29/20 21:34 Serum Total Protein 6.5 g/dL (6.0-8.3) 11/29/20 18:32 Albumin 4.0 g/dL (3.5-5.0) 11/29/20 18:32 Globulin 2.5 g/dL (2.4-3.5) 11/29/20 18:32 Albumin/Globulin Ratio 1.6 g/dL (1.2-2.2) 11/29/20 18:32 Chest x-ray Status: report reviewed by me Hospitalist H&P A/P (1) NSTEMI (non-ST elevated myocardial infarction) Code(s): I21.4 - NON-ST ELEVATION (NSTEMI) MYOCARDIAL INFARCTION Status: Acute Assessment and Plan: Lovenox given in ED, 1 mg/kg Cardiac monitoring Continue to trend troponins D-Dimer and Mg+ added on Cardiology consult NPO Echo ordered Will give morphine for pain, states it has worked in the past Continue Nitro paste Continue ASA and Statin Lipid Panel with AM labs IV fluids ordered (2) Chest pain Code(s): R07.9 - CHEST PAIN, UNSPECIFIED Status: Acute (3) Shortness of breath on exertion Code(s): R06.02 - SHORTNESS OF BREATH Status: Acute (4) Hypertension Code(s): I10 - ESSENTIAL (PRIMARY) HYPERTENSION Status: Acute (5) Obesity Code(s): E66.9 - OBESITY, UNSPECIFIED Status: Acute (6) Hypertriglyceridemia Code(s): E78.1 - PURE HYPERGLYCERIDEMIA Status: Acute (7) CAD (coronary artery disease) Code(s): I25.10 - ATHSCL HEART DISEASE OF [place] CORONARY ARTERY W/O ANG PCTRS Status: Chronic (8) Diabetes mellitus Code(s): E11.9 - TYPE 2 DIABETES MELLITUS WITHOUT COMPLICATIONS Status: Chronic
[2020-11-29] MEDS ORDERED: Morphine 2 MG/ML VIAL SLOW IVP SCH (23:30)
[2020-11-29] MEDS ORDERED: Acetaminophen 325 MG TAB PO PRN (23:33)
[2020-11-29] MEDS ORDERED: Acetaminophen 650 MG Suppository PR PRN (23:33)
[2020-11-29] MEDS ORDERED: Dextrose 5% in Water 1,000 ML IV PRN (23:37)
[2020-11-29] MEDS ORDERED: HumaLOG 300 UNITS/3 ML VIAL SC PRN ×2 (23:37)
[2020-11-29] MEDS ORDERED: Dextrose 50% Abboject 50 ML SYRINGE SLOW IVP PRN (23:37)
[2020-11-30] MEDS ORDERED: Morphine 2 MG/ML VIAL ONE (01:16)
[2020-11-30 01:55] LABS: #Basophils 0.1 thou/uL (0.0-0.2); #Eosinphils 0.5 thou/uL (0.0-0.7); #Lymphocytes 3.3 thou/uL (1.20-3.40); #Monocytes 1.3 thou/uL (0.11-0.59); #Neutrophils 6.4 thou/uL (1.40-6.50); %Basophils 0.8 % (0.0-1.0); %Eosinophils 4.4 % (0.0-10.0); %Lymphocytes 28.2 % (21.0-51.0); %Monocytes 11.5 % (0.0-10.0); %Neutrophils 55.1 % (42.0-75.0); Hemoglobin 16.6 g/dL (14.0-18.0); Mean Corpuscular HGB CONC 35.5 g/dL (32.0-36.0); Mean Corpuscular Hemoglobin 33.9 pg (27.0-31.0); Mean Corpuscular Volume 95.5 fL (78.0-98.0); Platelet Count 239 thou/uL (130-400); RBC Distribution Width 12.3 % (11.5-14.5); White Blood Cell (WBC) Count 11.6 thou/uL (4.8-10.8)
[2020-11-30 02:26] LABS: ALT (SGPT) 19 U/L (8-55); AST (SGOT) 33 U/L (5-34); Albumin 3.7 g/dL (3.5-5.0); Alkaline Phosphatase 86 U/L (40-110); Anion Gap 16 mmol/L (10-20); BUN (Urea Nitrogen) 15 mg/dL (8.4-25.7); Bilirubin, Total 0.5 mg/dL (0.2-1.2); Calc. Creatinine Clearance 0 mL/min (70-130); Calcium 8.5 mg/dL (7.8-10.44); Carbon Dioxide 24 mmol/L (22-29); Cardiac Risk 6.6 (Less than 4.5); Chloride 100 mmol/L (98-107); Cholesterol 152 mg/dl (< 200 Desired); Globulin 2.7 g/dL (2.4-3.5); Glucose 296 mg/dL (70-105); HDL Cholesterol 23 mg/dL (>60 Neg Risk); Potassium 3.7 mmol/L (3.5-5.1); Protein, Total 6.4 g/dL (6.0-8.3); Sodium 136 mmol/L (136-145); Triglycerides 579 mg/dL (Less than 150)
[2020-11-30 02:55] LABS: CKMB 49.4 ng/mL (0-6.6)
[2020-11-30 06:29] VITALS: BMI 39.8
[2020-11-30] MEDS ORDERED: Nitroglycerin 0.4 MG TAB (25 Tab Bottle) SL PRN ×2 (09:23→12:14)
[2020-11-30] MEDS ORDERED: Lisinopril 10 MG TAB PO SCH (09:30)
[2020-11-30] MEDS ORDERED: Aspirin 81 mg Enteric Coated Tablet PO SCH (09:30)
[2020-11-30] MEDS ORDERED: TICAGRELOR 90 MG TABLET PO SCH (09:30)
[2020-11-30] MEDS ORDERED: Carvedilol 6.25 MG TAB PO SCH (09:30)
[2020-11-30] MEDS: Morphine 2 MG/ML VIAL SLOW IVP PRN ×4 (09:38→20:56)
[2020-11-30] MEDS: Enoxaparin Sodium 120 MG/0.8 ML SYRINGE SC SCH ×3 (09:41→20:47)
[2020-11-30] MEDS: Sodium Chloride 0.9% 1,000 ML IV SCH ×2 (10:21→13:47)
[2020-11-30] MEDS: Nitroglycerin 2% Ointment 1 INCH/1 GM Packet TOP SCH ×3 (10:21→21:07)
[2020-11-30] MEDS ORDERED: Communication Order-Pharmacy FS SCH (10:30)
[2020-11-30] MEDS ORDERED: Lidocaine 1% (PF) 30 ML VIAL ONE (10:41)
[2020-11-30] MEDS ORDERED: Midazolam HCl 2 mg/2 ml Vial ONE (11:17)
[2020-11-30] MEDS ORDERED: Fentanyl 100 MCG/2 ML VIAL ONE (11:18)
--- NOTE | 2020-11-30 11:46 | CON ---
DATE OF CONSULTATION: 11/30/2020 REASON FOR CONSULTATION: Non-ST elevation myocardial infarction with ongoing chest pain. PRIMARY CYBER SYSTEMS OPERATIONS SPECIALIST: Dr. Javier Crews. HISTORY OF PRESENT ILLNESS: Mr. Hercules is a 50-year-old gentleman with history of coronary artery bypass grafting and subsequent stent implantation, now with non-ST elevation infarction. Mr. Hercules has been having a dull substernal pain for couple of weeks, but it is coming off and on, yesterday became more intense. He actually went to the emergency room in [place], but there was a lot of people waiting, someone told him they had been there 20 hours waiting, so he decided to leave that emergency room and drive to [place]. He had chest pain almost constantly since yesterday morning, said it occasionally let up and come back. He has just received some morphine small amount, but states that the pain is still present. The past history of history of coronary artery bypass grafting for multivessel coronary artery disease at age 36. He underwent bypass x3 by Dr. Lazcano at [facility] to the LAD, vein graft to the first marginal branch, vein graft to the right acute marginal. The patient re-presented with chest pain in May 2019, was taken to the cardiac catheterization lab by Dr. Coombs and underwent stent implantation in 3 different vessels. In the circumflex, a 3.5 x 12 Synergy was placed, postdilated to 4.5 x 8 mm balloon. Stent was placed, I believe in anastomosis of the marginal graft and also distally in the right coronary, we need to re-review these films. Dr. Coombs's note indicates there was drug-eluting stents placed in the distal circumflex, proximal circumflex, and obtuse marginal graft. The patient has done relatively well up until about 2 weeks ago. He has been having chest pain off and on since then. MEDICATIONS: Prior to admission, he is taking, 1. Aspirin. 2. Carvedilol. 3. Lisinopril. 4. Metformin. 5. Ticagrelor is listed in his medication list, but he said he took that one year and then stopped. He is only on aspirin. ALLERGIES: NONE KNOWN. SOCIAL HISTORY: Denies tobacco or drug use. SURGICAL HISTORY: Bypass in 2006, stent implantations in 2019. PAST HISTORY: Hypertension, coronary artery disease at young age, hypertriglyceridemia, type 2 diabetes, obesity. PHYSICAL EXAMINATION: GENERAL: This is a pleasant 50-year-old gentleman, in no distress, but he is still having ongoing pain. VITAL SIGNS: Blood pressure 131/68; pulse 92, irregular. EYES: Sclerae nonicteric. MOUTH: Mucous membranes moist. NECK: Supple. No lymphadenopathy. LUNGS: Clear. CARDIAC: Normal S1, normal S2. There is no murmur, rub, or gallop. ABDOMEN: Obese, nontender. EXTREMITIES: Warm, dry. No clubbing. No cyanosis. No edema. Peripheral pulses are present. PERTINENT LABORATORY: First troponin was 2.627, followed by 3.997. Glucose 296, earlier 122. Triglycerides 579, cholesterol 152. IMAGING: EKG: Sinus rhythm with PVCs, ST elevation in V1 only. ASSESSMENT: 1. Non-ST elevation myocardial infarction with ongoing chest pain. 2. Diabetes. 3. Obesity. 4. Previous bypass surgery. 5. Previous stent implantations. PLAN: 1. I did review the cardiac catheterization films quickly. We will re-review these, looks like a complicated case as outlined above. 2. He is on aspirin. 3. Hold enoxaparin. 4. Continue lisinopril. 5. Continue beta sangita. 6. Proceed to cardiac catheterization. Discussed risk of stroke, heart attack, iodine allergy, interfering the blood supply to the leg or kidney, stent thrombosis, stent restenosis. He understands and wished to proceed. If it is restenosis of the large vessels, repeat stenting would be appropriate. If it is a graft that is occluded, medical therapy may be the most appropriate option or if it is a small vessel that is restenosed and is closed, medical therapy is likely the best option. The cardiac catheterization is necessary to make that decision and make treatment choices and proceed with stenting if indicated. Job ID: [id number]
[2020-11-30] MEDS ORDERED: Acetaminophen/Codeine 30-300mg Tablet PO PRN (12:14)
[2020-11-30] MEDS ORDERED: Sodium Chloride 0.9% 200 ML IV PRN (12:14)
--- NOTE | 2020-11-30 17:25 | PDOC.HOSPP ---
- Subjective Encounter Date: 11/30/20 Encounter Time: 09:30 Subjective: Patient seen and examined for non-ST elevation PR. Chest pain improvednow is 3/10 from 910 this morning. Denies any nausea, diaphoresis or palpitations. - Objective Vital Signs & Weight: Vital Signs (12 hours) Temp Pulse Resp BP Pulse Ox 11/30/20 12:27 96.9 F L 82 18 130/69 93 L 11/30/20 08:49 98.0 F 92 20 131/68 95 11/30/20 06:32 98 Weight Weight 262 lb Result Diagrams: 11/30/20 01:43 11/30/20 01:43 Additional Labs: Accuchecks 11/30/20 11/30/20 11:03 06:17 POC Glucose 126 H 122 H Abnormal Lab Results - Last 48 hrs 11/29/20 18:32: CK-MB (CK-2) 31.0 H*, Troponin I 1.311 H* 11/29/20 18:32: WBC 12.1 H, MCH 31.9 H, MPV 5.9 L, Monocytes % 10.1 H, Neutrophils # 7.4 H, Monocytes # 1.2 H 11/29/20 21:34: Troponin I 2.627 H* 11/30/20 01:43: CK-MB (CK-2) 49.4 H*, Troponin I 3.997 H* 11/30/20 01:43: Triglycerides 579 H 11/30/20 01:43: WBC 11.6 H, MCH 33.9 H, MPV 6.0 L, Monocytes % 11.5 H, Monocytes # 1.3 H Radiology Reviewed by me: Yes (No infiltrate on chest x-ray) EKG Reviewed by me: Yes (Sinus rhythm on telemetry) Hospitalist ROS - Review of Systems Respiratory: denies: cough, dry, shortness of breath, hemoptysis, SOB with excertion, pleuritic pain, sputum, wheezing, other Cardiovascular: denies: chest pain, palpitations, orthopnea, paroxysmal noc. dyspnea, edema, light headedness, other - Medication Medications: Active Medications Generic Name Dose Route Start Last Admin Trade Name Freq PRN Reason Stop Dose Admin Enoxaparin Sodium 120 mg 11/30/20 09:00 11/30/20 09:41 Enoxaparin Sodium 120 Mg/0.8 Ml Syringe SC 11/30/20 23:00 Not Given 0900,2100 [facility] Morphine Sulfate 2 mg 11/30/20 09:16 11/30/20 13:46 Morphine 2 Mg/Ml Vial SLOW IVP 12/02/20 09:17 2 mg Q2H PRN Administration Chest Pain Nitroglycerin 0.5 inch 11/30/20 06:00 11/30/20 13:42 Nitroglycerin 2% Ointment 1 Inch/1 Gm Packet TOP Not Given Q8HR [facility] Hospitalist Exam Vitals: Vital Signs (12 hours) Temp Pulse Resp BP Pulse Ox 11/30/20 12:27 96.9 F L 82 18 130/69 93 L 11/30/20 08:49 98.0 F 92 20 131/68 95 11/30/20 06:32 98 Weight Weight 262 lb General Appearance: NAD, awake alert Neck: supple, symmetric, no JVD, no thyromegaly Heart: RRR, no gallops, no rubs, normal peripheral pulses Respiratory: no wheezes, no rales, no ronchi, normal chest expansion Gastrointestinal: soft, non-tender, non-distended, normal bowel sounds Extremities: no cyanosis, no clubbing, no edema Extremities - other findings: No calf tenderness Neurological: no new deficit Psychiatric: normal affect, A&O x 3 Hosp A/P (1) Chest pain Code(s): R07.9 - CHEST PAIN, UNSPECIFIED Status: Acute (2) NSTEMI (non-ST elevated myocardial infarction) Code(s): I21.4 - NON-ST ELEVATION (NSTEMI) MYOCARDIAL INFARCTION Status: Acute (3) Obesity (BMI 30-39.9) Code(s): E66.9 - OBESITY, UNSPECIFIED Status: Acute (4) Diabetes mellitus type 2 in obese Code(s): E11.69 - TYPE 2 DIABETES MELLITUS WITH OTHER SPECIFIED COMPLICATION; E66.9 - OBESITY, UNSPECIFIED Status: Acute (5) Dyslipidemia Code(s): E78.5 - HYPERLIPIDEMIA, UNSPECIFIED Status: Acute (6) Hypertension Code(s): I10 - ESSENTIAL (PRIMARY) HYPERTENSION Status: Acute (7) CAD (coronary artery disease) Code(s): I25.10 - ATHSCL HEART DISEASE OF [place] CORONARY ARTERY W/O ANG PCTRS Status: Chronic - Plan DVT proph w/SCDs Non-ST elevation PR with history of coronary artery disease requiring CABG Restart home dose of aspirin with Brilinta. Continue Lovenox 1 mg/kg. Restart beta-blockers and [place] inhibitor. Add morphine as needed for pain. Patient is refusing nitroglycerin per RN report. Await cardiology input. Continue n.p.o. Dyslipidemia Continue statins with Vascepa. Fasting lipid profile showed triglyceride 579 with cholesterol 152 Hypertension Plan as above Diabetes mellitus type 2 Continue mild sliding scale. Hold Metformin Update at 8 PM: Patient stated that he does not take Brilinta at home on the daily basis. However per automotive service writer recommended to continue Brilinta. Dr. Crews will assess the patient in the morning and will decide whether he needs to go home on Brilinta. We will continue other home medications
[2020-11-30] MEDS ORDERED: Iopamidol 370 76% 100 ML VIAL ONE (17:45)
[2020-11-30] MEDS: Icosapent Ethyl 1 GM CAPSULE PO SCH (17:51)
[2020-11-30] MEDS: Carvedilol 6.25 MG TAB PO SCH (20:44)
[2020-11-30] MEDS: Lisinopril 10 MG TAB PO SCH (20:44)
[2020-11-30] MEDS: Atorvastatin Calcium 40 MG TAB PO SCH (20:44)
[2020-11-30] MEDS: TICAGRELOR 90 MG TABLET PO SCH (20:57)
[2020-12-01] MEDS: Nitroglycerin 2% Ointment 1 INCH/1 GM Packet TOP SCH (06:10)
[2020-12-01] MEDS: Aspirin 81 mg Enteric Coated Tablet PO SCH (10:04)
[2020-12-01] MEDS: Icosapent Ethyl 1 GM CAPSULE PO SCH ×2 (10:04→16:55)
[2020-12-01] MEDS: Carvedilol 6.25 MG TAB PO SCH (10:04)
[2020-12-01] MEDS: TICAGRELOR 90 MG TABLET PO SCH ×2 (10:05→20:19)
[2020-12-01] MEDS: Lisinopril 10 MG TAB PO SCH (10:06)
--- NOTE | 2020-12-01 17:36 | PDOC.HOSPP ---
- Subjective Encounter Date: 12/01/20 Subjective: Patient seen by me this morning. He was in no distress. Denies any chest pain. He was actually requesting to be discharged because he felt so well. - Objective Vital Signs & Weight: Vital Signs (12 hours) Temp Pulse Resp BP Pulse Ox 12/01/20 16:50 98.2 F 92 16 140/78 96 12/01/20 12:09 97.7 F 88 16 144/84 H 96 12/01/20 08:00 97.5 F L 88 18 166/97 H 96 Weight Weight 262 lb I&O: 11/30/20 12/01/20 12/02/20 06:59 06:59 06:59 Intake Total 600 Balance 600 Result Diagrams: 11/30/20 01:43 11/30/20 01:43 Additional Labs: Accuchecks 12/01/20 12/01/20 11/30/20 11:06 05:10 20:52 POC Glucose 192 H 116 H 132 H 11/30/20 17:59 POC Glucose 164 H Hospitalist ROS - Medication Medications: Active Medications Generic Name Dose Route Start Last Admin Trade Name Freq PRN Reason Stop Dose Admin Aspirin 81 mg 12/01/20 09:00 12/01/20 10:04 Aspirin 81 Mg Enteric Coated Tablet PO 81 mg DAILY CL Administration Atorvastatin Calcium 40 mg 11/30/20 21:00 11/30/20 20:44 Atorvastatin Calcium 40 Mg Tab PO 40 mg HS CL Administration Miscellaneous Medication 2 gm 11/30/20 17:00 12/01/20 16:55 Icosapent Ethyl 1 Gm Capsule PO 2 gm BID-WM CL Administration Morphine Sulfate 2 mg 11/30/20 09:16 11/30/20 20:56 Morphine 2 Mg/Ml Vial SLOW IVP 12/02/20 09:17 2 mg Q2H PRN Administration Chest Pain Ticagrelor 90 mg 11/30/20 21:00 12/01/20 10:05 Ticagrelor 90 Mg Tablet PO 90 mg BID CL Administration Hospitalist Exam Vitals: Vital Signs (12 hours) Temp Pulse Resp BP Pulse Ox 12/01/20 16:50 98.2 F 92 16 140/78 96 12/01/20 12:09 97.7 F 88 16 144/84 H 96 12/01/20 08:00 97.5 F L 88 18 166/97 H 96 Weight Weight 262 lb General Appearance: NAD, awake alert Eye: anicteric sclera ENT: normocephalic atraumatic Neck: supple Heart: RRR, no murmur, no gallops, no rubs Respiratory: CTAB, no wheezes, no rales, no ronchi Gastrointestinal: soft, non-tender, non-distended Extremities: no clubbing, no edema Neurological: cranial nerve grossly intact Musculoskeletal: normal tone, normal strength Psychiatric: normal affect, normal behavior Hosp A/P (1) Diabetes mellitus type 2 in obese Code(s): E11.69 - TYPE 2 DIABETES MELLITUS WITH OTHER SPECIFIED COMPLICATION; E66.9 - OBESITY, UNSPECIFIED Status: Acute (2) Dyslipidemia Code(s): E78.5 - HYPERLIPIDEMIA, UNSPECIFIED Status: Acute (3) Hypertension Code(s): I10 - ESSENTIAL (PRIMARY) HYPERTENSION Status: Acute (4) NSTEMI (non-ST elevated myocardial infarction) Code(s): I21.4 - NON-ST ELEVATION (NSTEMI) MYOCARDIAL INFARCTION Status: Acute (5) Obesity (BMI 30-39.9) Code(s): E66.9 - OBESITY, UNSPECIFIED Status: Acute (6) Hypertriglyceridemia Code(s): E78.1 - PURE HYPERGLYCERIDEMIA Status: Acute (7) CAD (coronary artery disease) Code(s): I25.10 - ATHSCL HEART DISEASE OF [place] CORONARY ARTERY W/O ANG PCTRS Status: Chronic - Plan Manfred 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 Patient presented with a dull substernal chest pain constant that was not letting up. He initially went to [facility] in [place] but did not want to wait as the wait time for admission was long. He drove 4 hours to [facility]. His medical reimbursement manager is Dr. Crews [facility] cardiology services. Work-up during this admission was significant for NSTEMI with troponin of 1.3. Coronary angiogram performed by Dr. Rodriguez revealed patent stents, patent graft but occluded RCA had a mid and distal inferior wall akinesis. EF was 35%. Patient was seen by his medical reimbursement manager Dr. Crews today. Recommending at least 48 hours of hospital monitoring. Of note, it been discovered that patient was not taking Brilinta for at least a year. NSTEMI Coronary artery disease status post CABG and PCI Chronic systolic CHF Type 2 diabetes mellitus and hyperglycemia Hypertension Obesity Hyperlipidemia -LDL could not be measured due to hypertriglyceridemia Hypertriglyceridemia Plan: Continue monitoring Continue aspirin, Brilinta, atorvastatin Also continue Coreg and lisinopril As needed nitroglycerin for chest pain I will check for hemoglobin A1c due to hyperglycemia Start insulin sliding scale in the meantime Anticipating discharge tomorrow
[2020-12-01] MEDS ORDERED: Dronabinol 2.5 MG CAP PO SCH (17:45)
[2020-12-01] MEDS ORDERED: HumaLOG 300 UNITS/3 ML VIAL SC PRN (17:50)
[2020-12-01] MEDS ORDERED: Dextrose 5% in Water 1,000 ML IV PRN (17:50)
[2020-12-01] MEDS ORDERED: Dextrose 50% Abboject 50 ML SYRINGE SLOW IVP PRN (17:50)
[2020-12-01 18:11] LABS: Hemoglobin A1c 6.7 % (4.0-6.0)
[2020-12-01] MEDS: Lisinopril 20 MG TAB PO SCH (20:19)
[2020-12-01] MEDS: Carvedilol 25 MG TAB PO SCH (20:19)
[2020-12-01] MEDS: Atorvastatin Calcium 40 MG TAB PO SCH (20:19)
[2020-12-02] MEDS ORDERED: Dronabinol 2.5 MG CAP PO SCH (07:30)
[2020-12-02 08:50] VITALS: BP 137/71; TEMP 98.3
[2020-12-02] MEDS: Aspirin 81 mg Enteric Coated Tablet PO SCH (09:53)
[2020-12-02] MEDS: Icosapent Ethyl 1 GM CAPSULE PO SCH (09:53)
[2020-12-02] MEDS: TICAGRELOR 90 MG TABLET PO SCH (09:53)
[2020-12-02] MEDS: Carvedilol 25 MG TAB PO SCH (10:07)
[2020-12-02] MEDS: Lisinopril 20 MG TAB PO SCH (10:07)
[2020-12-02] MEDS ORDERED: Clopidogrel Bisulfate 75 MG TAB PO SCH (10:15)
--- NOTE | 2020-12-02 13:02 | PDOC.DS.DS ---
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 Work-up during this admission was significant for NSTEMI with troponin of 1.3. Coronary angiogram performed by Dr. Rodriguez revealed patent stents, patent graft but occluded RCA had a mid and distal inferior wall akinesis. EF was 35%. It appears patient has not been compliant on his Brilinta most likely due to higgins. He was seen by his chart changer Dr. Crews who placed him on Plavix. Medications have been reconciled and we ensure that patient has all the medications he will need prior to discharge. Oratory work-up significant for elevated LDL. He will be on high intensity statin as well. A1c was 6.7. Resuscitation Status: 11/29/20 23:33 Resuscitation Status Routine Co-Sign Provider: Resuscitation Status: FULL: Full Resuscitation Lab Results: 11/30/20 01:43 11/30/20 01:43 Abnormal Lab Results - Last 48 hrs 12/01/20 17:53: Hemoglobin A1c 6.7 H Vitals: Vital Signs (12 hours) Temp Pulse Resp BP Pulse Ox 12/02/20 09:50 96 12/02/20 08:00 98.3 F 94 16 137/71 96 12/02/20 04:00 97.9 F 80 18 135/74 95 Weight Weight 262 lb Physical Exam: The patient was seen and examined on the day of discharge. General Appearance: NAD, awake alert Eye - other findings: EOMi Neurological: cranial nerve grossly intact PSYCH: normal affect, normal behavior Problem Assessment: Refer to hospital course (1) Diabetes mellitus type 2 in obese Code(s): E11.69 - TYPE 2 DIABETES MELLITUS WITH OTHER SPECIFIED COMPLICATION; E66.9 - OBESITY, UNSPECIFIED Status: Acute (2) Dyslipidemia Code(s): E78.5 - HYPERLIPIDEMIA, UNSPECIFIED Status: Acute (3) Hypertension Code(s): I10 - ESSENTIAL (PRIMARY) HYPERTENSION Status: Acute (4) NSTEMI (non-ST elevated myocardial infarction) Code(s): I21.4 - NON-ST ELEVATION (NSTEMI) MYOCARDIAL INFARCTION Status: Acute (5) Obesity (BMI 30-39.9) Code(s): E66.9 - OBESITY, UNSPECIFIED Status: Acute (6) Hypertriglyceridemia Code(s): E78.1 - PURE HYPERGLYCERIDEMIA Status: Acute (7) CAD (coronary artery disease) Code(s): I25.10 - ATHSCL HEART DISEASE OF [place] CORONARY ARTERY W/O ANG PCTRS Status: Chronic Plan Prescriptions: Carvedilol [Coreg] 25 mg PO BID #60 tab Home Medications: Medication Instructions Recorded Confirmed Type Aspirin [Aspir-Low] 81 mg PO DAILY 05/29/19 11/30/20 History Atorvastatin Calcium [Lipitor] 40 mg PO HS 05/29/19 11/30/20 History metFORMIN HCl 1,000 mg PO BID-WM 05/29/19 11/30/20 History Icosapent Ethyl [Vascepa] 2 gm PO BID-WM #60 capsule 06/03/19 11/30/20 Rx Varenicline Tartrate [Chantix] 1 each PO BID 06/03/19 06/03/19 History Carvedilol [Coreg] 25 mg PO BID #60 tab 12/02/20 Rx Clopidogrel Bisulfate [Plavix] 75 mg PO DAILY tab 12/02/20 Rx Lisinopril [Zestril] 20 mg PO BID tab 12/02/20 Rx Nitroglycerin [Nitrostat] 0.4 mg SL Q5MIN PRN tab 12/02/20 Rx Allergies: No Known Drug Allergies Allergy (Verified 01/02/20 15:37) Referrals: [facility] [Primary Care Provider] - 7 Days [facility] ) Javier Crews MD [Active] - (Follow up as discussed. ) Disposition: HOME Quality CORE MEASURES:: AMI Did you prescribe antithrombotic therapy?: Yes Did you prescribe anticoagulant for A Fib/Flutter?: No Specify reason for no DC anticoagulant: Treatment not indicated Did you prescribe a statin medication?: Yes
[2020-12-03] MEDS ORDERED: Clopidogrel Bisulfate 75 MG TAB PO SCH (09:00)
== END 2020-12-02 12:15 | disposition home or self-care (01) | DRG 281 ==
LOC: ERS 17:58 → 3SE 20:34 → OBSVTOIN 20:34 → 3SE 20:38 → UNDOADMOB 20:38 → 3SE 11-30 05:39
PROVIDERS: ADMIT Student in an Organized Health Care Education/Training Program; ATTEND Internal Medicine
PROC: 4A023N7 Measurement of Cardiac Sampling and Pressure, Left Heart, Percutaneous Approach (ICD-10-PCS; principal; 2020-11-30)
PROC: B2111ZZ Fluoroscopy of Multiple Coronary Arteries using Low Osmolar Contrast (ICD-10-PCS; 2020-11-30)
PROC: B2121ZZ Fluoroscopy of Single Coronary Artery Bypass Graft using Low Osmolar Contrast (ICD-10-PCS; 2020-11-30)
DX: I21.4 Non-ST elevation (NSTEMI) myocardial infarction (principal); I50.22 Chronic systolic (congestive) heart failure; I25.10 Atherosclerotic heart disease of native coronary artery without angina pectoris; E66.9 Obesity, unspecified; E78.1 Pure hyperglyceridemia; I11.0 Hypertensive heart disease with heart failure; E11.65 Type 2 diabetes mellitus with hyperglycemia; Z79.82 Long term (current) use of aspirin; Z68.39 Body mass index [BMI] 39.0-39.9, adult; Z95.1 Presence of aortocoronary bypass graft; Z95.5 Presence of coronary angioplasty implant and graft; Z87.891 Personal history of nicotine dependence
CPT/HCPCS: 36415; 36416; 71046; 76942; 80053; 80061; 82553; 83036; 83735; 83880; 84484; 85025; 85379; 93005; 93458; 96372; 96374; 96375; 99152; 99153; J1644; J1650; J2001; J2250; J2270; J3010; Q9967

== ENCOUNTER 2022-07-26 11:30 | Inpatient (IN) | payer OTHER ==
[~2022-07-26 11:30] MED LIST: Iopamidol 370 76% 100 ML VIAL ONE
[2022-07-26] MEDS ORDERED: Aspirin Chewable 81 MG TAB ONE (11:40)
[2022-07-26] MEDS ORDERED: Nitroglycerin 2% Ointment 1 INCH/1 GM Packet ONE (11:40)
[2022-07-26] MEDS ORDERED: Morphine 4 MG/ML VIAL ONE (11:40)
[2022-07-26] MEDS ORDERED: Heparin 10,000 UNITS/ 10 ML VIAL ONE ×2 (11:46→11:49)
[2022-07-26] MEDS ORDERED: Lidocaine 1% PF 5 ML VIAL ONE (11:48)
[2022-07-26 12:01] LABS: #Basophils 0.1 thou/uL (0.0-0.2); #Eosinphils 0.2 thou/uL (0.0-0.7); #Lymphocytes 2.1 thou/uL (1.20-3.40); #Neutrophils 6.5 thou/uL (1.40-6.50); %Basophils 0.9 % (0.0-1.0); %Eosinophils 2.1 % (0.0-10.0); %Monocytes 10.1 % (0.0-10.0); Hemoglobin 17.4 g/dL (14.0-18.0); Mean Corpuscular HGB CONC 32.4 g/dL (32.0-36.0); Mean Corpuscular Hemoglobin 32.2 pg (27.0-31.0); Mean Corpuscular Volume 99.3 fL (78.0-98.0); Mean Platelet Volume 5.9 fL (7.4-10.4); Platelet Count 298 thou/uL (130-400); RBC Distribution Width 12.1 % (11.5-14.5); Red Blood Cell (RBC) Count 5.39 mill/uL (4.70-6.10); White Blood Cell (WBC) Count 9.8 thou/uL (4.8-10.8)
[2022-07-26 12:36] LABS: ALT (SGPT) 22 U/L (8-55); AST (SGOT) 15 U/L (5-34); Albumin 4.4 g/dL (3.5-5.0); Alkaline Phosphatase 58 U/L (40-110); Anion Gap 13 mmol/L (10-20); BUN (Urea Nitrogen) 11 mg/dL (8.4-25.7); Bilirubin, Total 0.4 mg/dL (0.2-1.2); Calc. Creatinine Clearance 0 mL/min (70-130); Calcium 9.1 mg/dL (7.8-10.44); Carbon Dioxide 24 mmol/L (22-29); Chloride 107 mmol/L (98-107); Estimated GFR 103; Globulin 2.6 g/dL (2.4-3.5); Glucose 195 mg/dL (70-105); Lipase 27 U/L (8-78); Potassium 4.5 mmol/L (3.5-5.1); Sodium 139 mmol/L (136-145)
[2022-07-26 14:25] VITALS: BMI 35.9
[2022-07-26] MEDS ORDERED: FLU VACC QS2022-23(6MOS UP)/PF 60 MCG/0.5 ML SYRINGE IM ONE (14:45)
[2022-07-26 15:39] LABS: SARS-CoV-2 NAA Rapid Test Not Detected (NotDetected)
[2022-07-26] MEDS ORDERED: Clopidogrel Bisulfate 75 MG TAB PO SCH (16:00)
[2022-07-26 18:56] LABS: Hemoglobin 15.3 g/dL (14.0-18.0); Platelet Count 282 thou/uL (130-400)
[2022-07-26] MEDS ORDERED: Heparin 25,000 units/D5W 500 ML IV SCH (19:00)
[2022-07-26] MEDS: Heparin 10,000 UNITS/ 10 ML VIAL SLOW IVP SCH (19:29)
[2022-07-26 20:17] VITALS: BP 109/65
[2022-07-26] MEDS ORDERED: Carvedilol 25 MG TAB PO SCH (21:00)
[2022-07-26] MEDS ORDERED: Atorvastatin Calcium 40 MG TAB PO SCH (21:00)
[2022-07-26] MEDS ORDERED: Lisinopril 20 MG TAB PO SCH (21:00)
[2022-07-27] MEDS: Heparin 10,000 UNITS/ 10 ML VIAL SLOW IVP SCH (02:49)
[2022-07-27 03:50] VITALS: TEMP 98
[2022-07-27] MEDS ORDERED: Aspirin 81 mg Enteric Coated Tablet PO SCH (09:00)
== END 2022-07-27 03:45 | disposition short-term general hospital (02) | DRG 282 ==
LOC: ERS 11:30 → CCL 12:04 → CCU 13:42
PROVIDERS: ADMIT Internal Medicine Cardiovascular Disease; ATTEND Internal Medicine Cardiovascular Disease
PROC: 4A023N7 Measurement of Cardiac Sampling and Pressure, Left Heart, Percutaneous Approach (ICD-10-PCS; principal; 2022-07-26)
PROC: B2151ZZ Fluoroscopy of Left Heart using Low Osmolar Contrast (ICD-10-PCS; 2022-07-26)
PROC: B2111ZZ Fluoroscopy of Multiple Coronary Arteries using Low Osmolar Contrast (ICD-10-PCS; 2022-07-26)
DX: I21.4 Non-ST elevation (NSTEMI) myocardial infarction (principal); Z20.822 Contact with and (suspected) exposure to COVID-19; F17.210 Nicotine dependence, cigarettes, uncomplicated; I10 Essential (primary) hypertension; E78.00 Pure hypercholesterolemia, unspecified; I25.10 Atherosclerotic heart disease of native coronary artery without angina pectoris; I25.5 Ischemic cardiomyopathy; E66.9 Obesity, unspecified; I25.2 Old myocardial infarction; Z79.899 Other long term (current) drug therapy; Z95.5 Presence of coronary angioplasty implant and graft; Z68.36 Body mass index [BMI] 36.0-36.9, adult
CPT/HCPCS: 36415; 36416; 71045; 80053; 83690; 84484; 85025; 85347; 85730; 93005; 93458; 96374; 96375; C1769; C1887; J1644; J2270; Q9967; U0002